=== PATIENT | female | born 1960 | race Caucasian/White ===

== ENCOUNTER 2017-11-22 10:05 | Emergency (ER) | payer OTHER ==
[2017-11-22] MEDS: LIDOCAINE 1% (MDV) 10 ML INJ INJ (10:47)
[2017-11-22] MEDS: DIPHTH/TET/ACEL PERTUSS (ADULT) 0.5 ML VIAL IM* (10:47)
[2017-11-22] MEDS: HYDROCODONE/APAP (5/325) TAB PO (10:47)
== END 2017-11-22 12:39 | disposition home or self-care (01) ==
LOC: FTE 10:05
DX: S61.411A Laceration without foreign body of right hand, initial encounter (principal); I10 Essential (primary) hypertension; E10.9 Type 1 diabetes mellitus without complications; W54.0XXA Bitten by dog, initial encounter; Y92.9 Unspecified place or not applicable; Z23 Encounter for immunization; Z79.4 Long term (current) use of insulin
CPT/HCPCS: 12002; 73130-RT; 90471; 90715; 99283-25